=== PATIENT | female | born 1945 | race Hispanic/Latino ===

== ENCOUNTER 2021-06-17 13:09 | Emergency (ER) | payer OTHER ==
[~2021-06-17] VITALS: Ht 162.6 cm; Wt 65.3 kg
[2021-06-17] MEDS ORDERED: ACETAMINOPHEN 325 MG TAB ONE (13:55)
[2021-06-17] MEDS ORDERED: ACETAMINOPHEN 325 MG TAB PO ONE (14:00)
[2021-06-17 15:06] VITALS: BP 117/53
[2021-06-17] MEDS ORDERED: NAPR-1196 PO (15:36)
== END 2021-06-17 15:43 | disposition home or self-care (01) ==
LOC: EDH 13:09
DX: S39.012A Strain of muscle, fascia and tendon of lower back, initial encounter (principal); S16.1XXA Strain of muscle, fascia and tendon at neck level, initial encounter; M25.562 Pain in left knee; E11.9 Type 2 diabetes mellitus without complications; V49.49XA Driver injured in collision with other motor vehicles in traffic accident, initial encounter; Y93.89 Activity, other specified; Y92.9 Unspecified place or not applicable; Y99.8 Other external cause status
CPT/HCPCS: 72040; 72100; 73562

== ENCOUNTER 2023-06-04 16:05 | Emergency (ER) | payer OTHER, MEDICARE ==
[~2023-06-04] VITALS: Ht 152.4 cm; Wt 59.0 kg
[~2023-06-04 16:05] MED LIST: NAPR-1196 PO
[2023-06-04] MEDS ORDERED: ACET-2893 PO (19:02)
[2023-06-04 19:32] VITALS: BP 152/74; PULSE 88; RESP 18; O2SAT 99
== END 2023-06-04 19:33 | disposition home or self-care (01) ==
LOC: EDH 16:05
DX: S46.912A Strain of unspecified muscle, fascia and tendon at shoulder and upper arm level, left arm, initial encounter (principal); E11.9 Type 2 diabetes mellitus without complications; V89.2XXA Person injured in unspecified motor-vehicle accident, traffic, initial encounter; Y93.89 Activity, other specified; Y92.89 Other specified places as the place of occurrence of the external cause; Y99.8 Other external cause status
CPT/HCPCS: 70450; 72125; 73000